=== PATIENT | male | born 1970 | race Caucasian/White ===

== ENCOUNTER → 2021-02-28 10:44 | Outpatient (BNVA) | payer OTHER, SELFPAY | PROVIDERS: Visit Provider Family Medicine | DX: Z76.89 Persons encountering health services in other specified circumstances (principal); D64.9 Anemia, unspecified; E03.9 Hypothyroidism, unspecified; E06.3 Autoimmune thyroiditis; R79.89 Other specified abnormal findings of blood chemistry | CPT/HCPCS: 80053; 80061; 84153; 84443; 85025 ==

== ENCOUNTER → 2021-03-20 08:32 | Outpatient (BNVA) | payer OTHER, SELFPAY | PROVIDERS: PCP Family Medicine; Visit Provider Family Medicine | DX: R53.83 Other fatigue (principal); R45.86 Emotional lability | CPT/HCPCS: 84402 ==

== ENCOUNTER 2021-05-30 08:23 | Outpatient (CLI) | payer OTHER, SELFPAY ==
--- NOTE | 2021-05-30 08:30 | CT_ITS ---
WS: [id number] CT CHEST TECHNIQUE: Contrast enhanced CT of the chest with coronal and sagittal reformatted images. CLINICAL INFORMATION: PULMONARY NODULES COMPARISON: None. DLP: 275.[address] scans at [facility] use at least one of these dose optimization techniques: automated e xposure control; mA and/or kV adjustment per patient size (includes targeted exams where dose is matc hed to clinical indication); or iterative reconstruction. FINDINGS: Moderate chronic emphysematous changes. No acute pulmonary infiltrates. No focal pneumonia or pleural fluid. Subpleural nodules in the right lower lobe largest measuring 8.3 mm. 2 small nodules or focal pleural thickening in the right horizontal fissure largest measuring 4 mm. Noncalcified nodule left upper lobe measuring 4 mm. Noncalcified nodule left lower lobe laterally measuring 6 mm. 3 mm subpleu ral nodule left lower lobe laterally. Hazy subpleural nodule right lower lobe laterally measuring 4 m m. Adrenal glands are normal. Normal spleen. Normal GE junction. Small calcified left thyroid nodule. No rmal caliber thoracic aorta. Proximal main pulmonary arteries are normal. No mediastinal or hilar lym phadenopathy. No axillary lymphadenopathy. CT/CT chest w con* [id number] IMPRESSION: 1. Several subcentimeter noncalcified pulmonary nodules largest in the right l ower lobe subpleural in location measuring 8 mm and left lower lobe laterally m easuring 6 mm. Recommend 6 month follow-up. 2. No mediastinal or hilar lymphadenopathy. 3. No acute pulmonary infiltrates.
[2021-05-30] MEDS: iohexol 300 mg/mL 100 mL Btl IV (10:34)
== END 2021-05-30 08:24 | disposition home or self-care (01) ==
LOC: RAD 08:28
PROVIDERS: PCP Family Medicine; Visit Provider Family Medicine
DX: R91.8 Other nonspecific abnormal finding of lung field (principal)
CPT/HCPCS: 71260

== ENCOUNTER → 2021-06-01 09:20 | Outpatient (BNVA) | payer OTHER, SELFPAY | PROVIDERS: PCP Family Medicine; Visit Provider Family Medicine | DX: K21.9 Gastro-esophageal reflux disease without esophagitis (principal); L30.1 Dyshidrosis [pompholyx]; R91.8 Other nonspecific abnormal finding of lung field | CPT/HCPCS: 85651; 86038; 86140; 86200; 86431 ==

== ENCOUNTER → 2021-06-12 11:50 | Outpatient (BNVA) | payer OTHER, SELFPAY | PROVIDERS: PCP Family Medicine; Visit Provider Surgery | DX: Z20.822 Contact with and (suspected) exposure to COVID-19 (principal) | CPT/HCPCS: 87635 ==

== ENCOUNTER 2021-07-04 11:09 | Outpatient (CLI) | payer OTHER, SELFPAY ==
--- NOTE | 2021-07-04 11:52 | XR_ITS ---
WS: [email or web address] Right hand, 2 views, 07/04/2021 Clinical Data: R21 - Rash and other nonspecific skin eruption Comparison: None. Findings: No fractures or dislocations are seen. The soft tissues are unremarkable. The joint space s are normal No periarticular demineralization or calcifications are seen. XR/XR hand RT 2V [id number] Impression: Negative right hand.
--- NOTE | 2021-07-04 11:52 | XR_ITS ---
WS: [id number] Sacroiliac joints, 3 views, 07/04/2021 Clinical Data: L40.9 - Psoriasis, unspecified Comparison: None. Findings: The SI joints are normal in width. No erosion, sclerosis or destruction is seen. There are no fractur es or dislocations. There are radiopaque clips from surgery overlying the subcutaneous tissue of the pelvis. The adjacent visualized pelvis and hips are unremarkable. XR/XR sacroiliac jts m 3V 46030 Impression: Negative SI joints.
--- NOTE | 2021-07-04 11:52 | XR_ITS ---
WS: [email or web address] Right foot, 2 views, 07/04/2021 Clinical Data: M25.50 - Pain in unspecified joint Comparison: None. Findings: No fractures or dislocations are seen. No bone destruction or erosion is noted. The joint spaces and soft tissues are normal. There is a plantar spur. XR/XR foot RT 2V [id number] Impression: Negative right foot.
--- NOTE | 2021-07-04 11:52 | XR_ITS ---
WS: [email or web address] Left hand, 2 views, 07/04/2021 Clinical Data: R21 - Rash and other nonspecific skin eruption Comparison: None. Findings: No fractures or dislocations are seen. The soft tissues are unremarkable. The joint spaces are normal No periarticular demineralization or calcifications are seen. XR/XR hand LT 2V [id number] Impression: Negative left hand.
--- NOTE | 2021-07-04 11:52 | XR_ITS ---
WS: [email or web address] Left foot, 2 views, 07/04/2021 Clinical Data: M25.50 - Pain in unspecified joint Comparison: None. Findings: No fractures or dislocations are seen. No bone destruction or erosion is noted. The joint spaces and soft tissues are normal. There is a plantar spur. No periarticular demineralization or calcifications are seen. XR/XR foot LT 2V [id number] Impression: Negative left foot.
--- NOTE | 2021-07-04 11:52 | XR_ITS ---
WS: [email or web address] Lateral views of cervical spine in the flexion, extension and neutral positions. 07/04/2021 Clinical Data: R21 - Rash and other nonspecific skin eruption Comparison: None. Findings: There is degenerative disc disease at C4-C5, C5-C6 and C6-C7 with accompanying osteophyte formation. No compression fractures are seen. The prevertebral tissues show no swelling. On flexion and extensio n there is no limitation of motion or subluxation. XR/XR cervical spine fl/ex [id number] Impression: 1. Degenerative disc narrowing at C4-C5, C5-C6 and C6-C7 with osteophytes. 2. Negative for subluxation or limitation of motion on flexion or extension.
[2021-07-04 12:46] LABS: Complement C3 102 mg/dL (90-180)
[2021-07-04 13:20] LABS: Vitamin B12 299 pg/mL (232-1245)
[2021-07-04 13:46] LABS: Hepatitis B Core AB, Total Non-Reactive (Nonreactive); Hepatitis B Surface Antigen Non-Reactive (Nonreactive); Hepatitis C Virus Antibody Non-Reactive (Nonreactive)
[2021-07-05 12:27] LABS: COMPLEMENT COMPONENT C3C 94 mg/dL (82-185); COMPLEMENT COMPONENT C4C 22 mg/dL (15-53)
[2021-07-05 14:22] LABS: Cyclic Citrullinated Peptide <16 UNITS
[2021-07-05 14:33] LABS: COMPLEMENT, TOTAL (CH50) >60 U/mL (31-60)
[2021-07-07 13:27] LABS: CENTROMERE B ANTIBODY <1.0 NEG AI (<1.0 NEG); JO-1 ANTIBODY <1.0 NEG AI (<1.0 NEG); RNP ANTIBODY <1.0 NEG AI (<1.0 NEG); SCL-70 ANTIBODY <1.0 NEG AI (<1.0 NEG); SJOGREN'S ANTIBODY (SS-A) <1.0 NEG AI (<1.0 NEG); SM ANTIBODY <1.0 NEG AI (<1.0 NEG); SS-B <1.0 NEG AI (<1.0 NEG)
[2021-07-07 16:08] LABS: THYROID PEROXIDASE ANTIBODIES 357 IU/mL (<9)
[2021-07-10 11:27] LABS: ANA SCREEN, IFA POSITIVE (NEGATIVE); ANA TITER 1:40 titer
[2021-07-11 11:12] LABS: DNA AB (DS) CRITHIDIA,IFA NEGATIVE (NEGATIVE)
== END 2021-07-04 11:10 | disposition home or self-care (01) ==
PROVIDERS: PCP Family Medicine; Visit Provider Internal Medicine
DX: M25.50 Pain in unspecified joint (principal); R21 Rash and other nonspecific skin eruption; R76.8 Other specified abnormal immunological findings in serum; R91.8 Other nonspecific abnormal finding of lung field; L40.9 Psoriasis, unspecified; M25.78 Osteophyte, vertebrae
CPT/HCPCS: 72040; 72202; 73120; 73620; 82607; 83516; 86160; 86162; 86200; 86235; 86255; 86376; 86431; 86704; 86803; 87340

== ENCOUNTER 2021-07-17 10:34 | Outpatient (CLI) | payer OTHER, SELFPAY ==
[2021-07-17 11:07] LABS: Basophils # 0.1 10^3/uL (0.0-0.1); Basophils % 0.7 %; Eosinophils # 0.2 10^3/uL (0.0-0.8); Eosinophils % 2.1 %; Hematocrit 48.6 % (42.0-52.0); Hemoglobin 16.1 g/dL (11.7-16.6); Lymphocytes # 1.6 10^3/uL (0.8-4.8); Lymphocytes % 16.5 %; Mean Corpuscular HGB Conc 33.1 g/dL (30.0-36.0); Mean Corpuscular Volume 90.5 fl (80-94); Mean Platelet Volume 10.2 fL (7.4-10.4); Monocytes # 0.8 10^3/uL (0.2-0.9); Monocytes % 8.4 %; Neutrophils # 7.08 10^3/uL (1.8-7.7); Nucleated Red Blood Cells % 0 %; Platelet Count 224 10^3/cmm (130-400); Red Blood Count 5.37 10^6/uL (4.1-5.3); Red Cell Distribution Width 12.4 % (12.1-15.1); White Blood Count 9.8 10^3/uL (4.0-10.0)
[2021-07-17 11:32] LABS: Alanine Aminotransferase 23 U/L (0-41); Albumin Level 4.5 g/dL (3.5-5.2); Alkaline Phosphatase 55 IU/L (40-130); Anion Gap 13.5 (5-19); Aspartate Amino Transferase 26 U/L (0-40); Blood Urea Nitrogen 12 mg/dL (6-20); Calcium 8.5 mg/dL (8.5-10.5); Carbon Dioxide 26 mmol/L (22-29); Chloride 106 mmol/L (98-107); Globulin 2.5 g/dL (1.3-4.6); Glucose 105 mg/dL (65-115); Osmolality Calculated 292 mOsm/kg (285-295); Potassium 4.5 mmol/L (3.5-5.1); Sodium 141 mmol/L (136-145); Total Bilirubin 0.2 mg/dL (0.15-1.2)
[2021-07-19 12:53] LABS: Quantiferon Mitogen >10.00 IU/mL; Quantiferon Nil 0.01 IU/mL; Quantiferon TB Gold NEGATIVE (NEGATIVE)
== END 2021-07-17 10:35 | disposition home or self-care (01) ==
PROVIDERS: PCP Family Medicine; Visit Provider Internal Medicine
DX: M25.50 Pain in unspecified joint (principal); R21 Rash and other nonspecific skin eruption; R76.8 Other specified abnormal immunological findings in serum
CPT/HCPCS: 80053; 85025; 86480

== ENCOUNTER 2023-12-11 16:17 | Observation (INO) | payer SELFPAY ==
[2023-12-11] VITALS (10 sets, daily range): BP systolic 104–145; BP diastolic 75–105; PULSE 66–86; RESP 16–22; TEMP 36.4; O2SAT 93–95
--- NOTE | 2023-12-11 16:31 | ECG_ITS ---
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 Measurements Intervals [place] Rate: 84 P: 74 FL: 181 QRS: 42 QRSD: 97 T: 45 QT: 366 QTc: 434 Interpretive Statements SINUS RHYTHM No previous ECG available for comparison Electronically Signed On 12-11-2023 17:54:15 CDT by Jorden Hall M.D. [id number]
--- NOTE | 2023-12-11 16:31 | CTR_ITS ---
PROCEDURE INFORMATION: Exam: CT Head Without Contrast Exam date and time: 12/11/2023 4:34 PM Age: 53 years old Clinical indication: Stroke-like symptoms; RT upper extremity weakness; Additional info: Symptoms of acute stroke TECHNIQUE: Imaging protocol: Computed tomography of the head without contrast. Radiation optimization: All CT scans at this facility use at least one of these dose optimization techniques: automated exposure control; mA and/or kV adjustment per patient size (includes targeted exams where dose is matched to clinical indication); or iterative reconstruction. Other technique: STROKE PROTOCOL was implemented. COMPARISON: CR XR cervical spine fl/ex [id number] 07/04/2021 12:18 PM RADIATION DOSE METRICS: Total DLP (mGy-cm): 1109 FINDINGS: Brain: Normal. No hemorrhage. Unremarkable white matter. No mass effect. Cerebral ventricles: No ventriculomegaly. Paranasal sinuses: Minimal ethmoidal air cell disease bilaterally. Mastoid air cells: Visualized mastoid air cells are well aerated. Bones: Unremarkable. No acute fracture. Soft tissues: Unremarkable. CT/CT head thrombolytic [id number] IMPRESSION: No acute intracranial abnormality. ASSESSMENT: ASPECTS ([place] Stroke Program Early CT Score) is 10.
--- NOTE | 2023-12-11 16:33 | XR_ITS ---
WS: [id number] XR chest 1V portable [id number] REASON FOR EXAM: syncope FINDINGS: Mild tortuosity and ectasia of the thoracic aorta. Normal heart size. Calcified granulomas disease in both hemithoraces. Small areas of linear atelectasis in the left lung base. Otherwise no evidence for acute or subacute pulmonary parenchymal or pleural disease. No significant abnormality of the bony thorax. XR/XR chest 1V portable [id number] IMPRESSION: No acute or subacute chest abnormality.
[2023-12-11 16:35] LABS: Glucose Point of Care 94 mg/dL (70-110)
--- NOTE | 2023-12-11 16:40 | ED_ITS ---
HPI - Dizziness 2 General: Chief Complaint: Dizziness Stated Complaint: stoke like symptoms Time Seen by Provider: 12/11/23 16:30 Source: patient Mode of arrival: ambulatory Limitations: no limitations History of Present Illness: HPI Narrative: 53-year-old male states he is down in hi s basement and turned left and then stated he got dizzy and fell he is in a pass out he states he had right sided weakness state he cannot really get his right arm related to working and had decreased vision out of his right eye as well. His states that he was slurring his words as well states this lasted few minutes and is since resolved. States he feels back at his baseline states he had another event similar on the way here but was not as bad as initial event. Denies any headaches denies any chest pain. Associated symptoms: Denies chest pain, chills, headache(s), nausea or vomiting Review of Systems 2 Const: Denies: fever(s), chills, body aches or change in appetite Eyes: Reports: blurry vision ENMT: Denies: throat pain or dental pain Card: Reports: pre-syncope; Denies: chest pain Resp: Denies: dyspnea GI: Denies: abdominal pain, nausea, vomiting or diarrhea Musc: Denies: neck pain or back pain Skin/Breast: Denies: rash Neuro: Reports: weakness in extremities, dizziness and Slurred speech present; Denies: headache(s) James/Lymph: Denies: easy bruising PFSH ED 2 PFSH: Medical History Psoriasis GERD without esophagitis Pulmonary nodules Acquired hypothyroidism Margaret's disease Surgical History History of appendectomy lap-1999 Hx of tonsillectomy No pertinent past surgical history Family History Unknown Lupus Other Cancer Heart attack Hypertension Rheumatoid arthritis Denies family history of Diabetes Hyperlipidemia Chronic kidney disease (CKD) Stroke Social History Smoking and tobacco/nicotine status: never used tobacco/nicotine Alcohol intake: current Alcohol intake frequency: holidays/special occasions only Substance/Drug Use: current Substance/Drug use frequency: daily Physical Exam 2 Const: COMMON NORMALS: patient oriented x3 HENMT: COMMON NORMALS: normocephalic and atraumatic HEAD & SCALP: n ormocephalic and atraumatic Eye: COMMON NORMALS: Equal, round and reactive pupils present and EOMs intact bilaterally PUPIL: Yes Equal, round and reactive pupils present Neck/C-Spine: COMMON NORMALS: full ROM and supple Chest: COMMONS NORMALS: normal inspection of the chest and normal palpation of entire chest wall Resp: COMMON NORMALS: normal respiratory effort, No retractions, No use of accessory muscles and clear to auscultation bilaterally AUSCULTATION: clear to auscultation bilaterally Cardio: COMMON NORMALS: regular rate, regular rhythm and No murmurs present (Cardio) RATE: regular rate RHYTHM: regular rhythm Extremity: COMMON NORMALS: normal to inspection and full ROM Neuro: COMMON NORMALS: patient oriented x3, moves all extremities and no focal motor deficits CRANIAL NERVES: Yes CN normal except as noted SPEECH: s peech normal GAIT: Yes Normal gait present MOTOR EXAM: 5/5 motor strength present throughout Psych: COMMON NORMALS: mental status grossly normal, Normal thought process present and cooperative THOUGHT PROCESS: Normal thought process present Skin: COMMON NORMALS: no rashes or lesions noted and no wounds GENERAL SKIN EXAM: no rashes or lesions noted Course 2 Vital Signs: Vital signs: Vital Signs Temperature 97.6 F 12/11/23 16:23 Pulse Rate 80 12/11/23 18:21 Respiratory Rate 16 12/11/23 17:50 Blood Pressure 128/79 12/11/23 18:21 Pulse Oximetry 94 12/11/23 18:21 Oxygen Delivery Me thod Room Air 12/11/23 16:53 MDM - Dizziness Medical Decision Making Patient presents here with a TIA symptoms of full resolved is not a lytic candidate due to the resolution of his symptoms patient been seen in the ER by neurology his imaging here is normal spoke to the hospitalist Angelique for observation Medical Records I reviewed the patient's medical records. Lab Data I reviewed the patient's lab results. 12/11/23 16:43 12/11/23 16:[address] 12/11/23 16:31 IMPRESSION: No acute intracranial abnormality. ASSESSMENT: ASPECTS ([place] Stroke Program Early CT Score) is 10. Chest X-Ray 12/11/23 16:33 IMPRESSION: No acute or subacute chest abnormality. Head/Neck CTA 12/11/23 17:32 IMPRESSION: No intracranial large vessel arterial stenosis or occlusion. IMPRESSION: No significant cervical arterial stenosis or occlusion. COMMENTS: Consistent with the [employer]'s Incidental Findings Committee white paper (J Am Kin Radiol 2015): In patients aged 35 years and older with an incidental thyroid nodule equal to or greater than 1.[address], MRI or extrathyroidal US, further evaluation with dedicated thyroid US is recommended for patients with normal life expectancy and without comorbidities. For smaller nodules without suspicious features, no further evaluation or follow up is recommended. REFERENCES: NASCET CRITERIA. The degree of stenosis in the cervical segment of the internal carotid artery is based on NASCET criteria. Normal is no stenosis. Mild is less than 50% stenosis. Moderate is 50-69% stenosis. Severe is 70% to 99% stenosis. Total occlusion is no detectable patent lumen. ADDENDUM: 12/11/23 2057 ADDENDUM: THIS REPORT CONTAINS FINDINGS THAT MAY BE CRITICAL TO PATIENT CARE. The findings were verbally communicated via telephone conference with GILMER BENNETT at 6:34 PM CDT on 12/11/2023. The findings were acknowledged and understood. Laboratory Results WBC 10.48 10^3/uL (3.29-11.43) 12/11/23 16:43 RBC 5.93 10^6/uL (3.85-5.65) H 12/11/23 16:43 Hgb 17.60 g/dL (11.27-16.99) H 12/11/23 16:43 Hct 53.8 % (37-53) H 12/11/23 16:43 MCV 90.7 fl (82-101) 12/11/23 16:43 MCH 29.7 pg (27-33) 12/11/23 16:43 MCHC 32.7 g/dL (30-55) 12/11/23 16:43 RDW 12.4 % (12.1-15.1) 12/11/23 16:43 Plt Count 244 10^3/cmm (157-399) 12/11/23 16:43 MPV 10.1 fL (7.4-10.4) 12/11/23 16:43 Neut % (Auto) 73.8 % 12/11/23 16:43 Lymph % (Auto) 15.0 % 12/11/23 16:43 [place] % (Auto) 9.0 % 12/11/23 16:43 Eos % (Auto) 1.0 % 12/11/23 16:43 Baso % (Auto) 0.9 % 12/11/23 16:43 Neut # (Auto) 7.74 10^3/uL (1.8-7.7) H 12/11/23 16:43 Lymph # (Auto) 1.6 10^3/uL (0.8-4.8) 12/11/23 16:43 [place] # (Auto) 0.9 10^3/uL (0.2-0.9) 12/11/23 16:43 Eos # (Auto) 0.1 10^3/uL (0.0-0.8) 12/11/23 16:43 Baso # (Auto) 0.1 10^3/uL (0.0-0.1) 12/11/23 16:43 Nucleated RBC % (auto) 0 % 12/11/23 16:43 Nucleated RBCs # 0.0 /100WBC 12/11/23 16:43 PT 12.80 SECONDS (12.1-14.9) 12/11/23 16:43 INR 0.94 (0.8-1.2) 12/11/23 16:43 APTT 26.0 SECONDS (23.9-36.7) 12/11/23 16:43 Sodium 143 mmol/L (136-145) 12/11/23 16:43 Potassium 4.5 mmol/L (3.5-5.1) 12/11/23 16:43 Chloride 103 mmol/L (98-107) 12/11/23 16:43 Carbon Dioxide 30 mmol/L (22-29) H 12/11/23 16:43 Anion Gap 14.5 (5-19) 12/11/23 16:43 BUN 10 mg/dL (6-20) 12/11/23 16:43 Creatinine 1.1 mg/dL (0.7-1.2) 12/11/23 16:43 GFR Calculation 69.8 mL/min (90-130) L 12/11/23 16:43 Glucose 101 mg/dL (65-115) 12/11/23 16:43 POC Glucose 94 mg/dL (70-110) 12/11/23 16:33 Calculated Osmolality 295 mOsm/kg (285-295) 12/11/23 16:43 Calcium 8.8 mg/dL (8.5-10.5) 12/11/23 16:43 Total Bilirubin 0.3 mg/dL (0.15-1.2) 12/11/23 16:43 AST 24 U/L (0-40) 12/11/23 16:43 ALT 29 U/L (0-41) 12/11/23 16:43 Alkaline Phosphatase 70 U/L (40-130) 12/11/23 16:43 Troponin T Baseline 9 ng/L (0-15) 12/11/23 16:43 Total Protein 7.5 g/dL (6.6-8.7) 12/11/23 16:43 Albumin 4.4 g/dL (3.5-5.2) 12/11/23 16:43 Globulin 3.1 g/dL (1.3-4.6) 12/11/23 16:43 Urine Color Yellow (Yellow) 12/11/23 17:45 Urine Appearance Clear (CLEAR) 12/11/23 17:45 Urine pH 6.5 (5-7) 12/11/23 17:45 Ur Specific [place] 1.022 (1.005-1.030) 12/11/23 17:45 Urine Protein Trace (Negative) A 12/11/23 17:45 Urine Glucose (UA) Negative (Normal) 12/11/23 17:45 Urine Ketones Negative (Negative) 12/11/23 17:45 Urine Blood Negative (Negative) 12/11/23 17:45 Urine Nitrate Negative (Negative) 12/11/23 17:45 Urine Bilirubin Negative (Negative) 12/11/23 17:45 Urine Urobilinogen 1.0 mg/dL (Negative) 12/11/23 17:45 Ur Leukocyte Esterase Negative (Negative) 12/11/23 17:45 Urine RBC 0-2 /hpf (0-2) 12/11/23 17:45 Urine WBC 0-5 /hpf (0-5) 12/11/23 17:45 Ur Squamous Epith Cells 0-5 /hpf (0-5) 12/11/23 17:45 Amorphous Sediment Not Reportable 12/11/23 17:45 Urine Bacteria None seen /hpf (NONE) 12/11/23 17:45 Hyaline Casts 0-4 /lpf H 12/11/23 17:45 Urine Opiates Screen Negative ng/mL (Negative) 12/11/23 17:45 Ur Barbiturates Screen Negative ng/mL (Negative) 12/11/23 17:45 Ur Phencyclidine Scrn Negative ng/mL (Negative) 12/11/23 17:45 Ur Amphetamines Screen Negative ng/mL (Negative) 12/11/23 17:45 U Benzodiazepines Scrn Negative ng/mL (Negative) 12/11/23 17:45 Urine Cocaine Screen Negative ng/mL (Negative) 12/11/23 17:45 U Marijuana (THC) Screen Positive ng/mL (Negative) H 12/11/23 17:45 All radiology interpretation(s) finalized by discharge EKG Data EKG 1: I personally reviewed and interpreted this EKG as follows: EKG interpretation date: 12/11/23 EKG interpretation time: 16:46 Interpretation: nsr hr [address] or t wave abnormalities qrs 97 qtc 407 Discharge Plan Discharge Patient Disposition: Placed in Observation Clinical Impression: Transient cerebral ischemia Condition: Stable Prescriptions: No Action cholecalciferol (vitamin D3) 10 mcg (400 unit) capsule 10 mcg PO DAILY tacrolimus 0.1 % ointment 1 applic topical BID Qty: 30 1RF pantoprazole 40 mg tablet,delayed release (DR/EC) 40 mg PO BID Qty: 60 2RF clobetasol 0.05 % ointment 1 applic topical BID 14 Days Qty: 45 2RF Rx Instructions: Apply to affected area no more than 2 weeks per month, alternating with Triamcinolone. triamcinolone acetonide 0.1 % ointment 1 applic topical BID Qty: 80 2RF Rx Instructions: Apply to affected area no more than 2 weeks per month, alternating with clobetasol. Not for face. Otezla 30 mg tablet 30 mg PO BID Qty: 60 3RF Otezla Starter 10 mg (4)-20 mg (4)-30 mg (47) tablets,dose pack See Rx Instructions PO PER PKG DIR Qty: 55 0RF Rx Instructions: PO PER PKG DIR thyroid (pork) [Decker Thyroid] 60 mg tablet 60 mg PO DAILY Qty: 90 1RF Referrals: Basil Hassan DO [Primary Care Provider] - Coding Level of Care Code ED Mixer Wet Pour for Chg Fwd NIH stroke score NIHSS Level Of Consciousness - 1a: 0 Level Of Consciousness Questions - 1b: Both Correct Level Of Consciousness Commands - 1c: Both Correct Best Gaze - 2: Normal Visual Gillespie - 3: No Visual Loss Facial Palsy - 4: Normal Motor Arm Right - 5: No Drift Motor Arm Left - 5: No Drift Motor Leg Right - 6: No Drift Motor Leg Left - 6: No Drift Limb Ataxia - 7: Absent Sensory - 8: Normal Best Language - 9: No Aphasia Dysarthia - 10: Normal Extinction And Inattention - 11: 0 Score Total Score: 0
[2023-12-11 17:00] LABS: Basophils # 0.1 10^3/uL (0.0-0.1); Basophils % 0.9 %; Eosinophils # 0.1 10^3/uL (0.0-0.8); Hematocrit 53.8 % (37-53); Lymphocytes # 1.6 10^3/uL (0.8-4.8); Mean Corpuscular HGB Conc 32.7 g/dL (30-55); Mean Corpuscular Hemoglobin 29.7 pg (27-33); Mean Corpuscular Volume 90.7 fl (82-101); Mean Platelet Volume 10.1 fL (7.4-10.4); Monocytes # 0.9 10^3/uL (0.2-0.9); Neutrophils # 7.74 10^3/uL (1.8-7.7); Neutrophils % 73.8 %; Nucleated Red Blood Cells % 0 %; Platelet Count 244 10^3/cmm (157-399); Red Blood Count 5.93 10^6/uL (3.85-5.65); Red Cell Distribution Width 12.4 % (12.1-15.1); White Blood Count 10.48 10^3/uL (3.29-11.43)
--- NOTE | 2023-12-11 17:09 | P.CONIM_ITS ---
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 The patient also reports a childhood history of obtaining serial EKGs every 6 months until his teens/early adulthood. Patient stated he is not sure why he was undergoing the repeat serial EKGs since he never obtained the information from his mother. On 12/11/2023 at 3:15 PM the patient stated that he was in his basement. He stated that he turned to look left and suddenly he had loss of vision in his right peripheral visual itjerina associated with right-sided weakness and a sensation that his chest was fluttering and he felt like he might pass out. The episode lasted for approximately 2 minutes followed by repeat episode that was less severe and of shorter duration followed by a third episode that was similar but even less severe and of shorter duration than the first or second TIA episode. The patient stated that he finally was able to leave the basement and go upstairs to inform his . According to the patient's the patient was having difficulty communicating and was slow to respond. Upon arrival to the emergency room the patient's symptoms had resolved. NIH score = 0. Glucose Accu-Chek 94. Blood pressure 138/94 with sinus rhythm 81 bpm. O2 saturation 94% on room air. Respirations 22 temperature 97.6 ?F. Upon neurological assessment patient was without complaints and stated that his symptoms had not returned. Noncontrast head CT reported to be negative for acute findings. Lab for CBC and comprehensive metabolic panel were obtained. CBC revealed elevated RBC of 5.93, elevated hemoglobin 17.6 and elevated hematocrit 53.8. Comprehensive metabolic panel was unrevealing. Troponin level pending at the time of this dictation. Drug allergies: None Current medications: Losartan 100 mg p.o. daily Sharon Thyroid 60 mg p.o. daily 30 mg p.o. twice daily Apremilast Vitamin D3 400 international units p.o. daily Clobetasol 0.05% topical ointment to be applied twice a day Protonix 40 mg p.o. twice daily Tacrolimus 0.1% topical ointment to be applied twice a day Triamcinolone 0.1% topical ointment to be applied twice a day Past medical history: Serial EKGs from until he was a teenager/young adult Margaret's thyroiditis Hypothyroidism Gastroesophageal reflux disease without esophagitis Hypertension Psoriasis Positive CHARLA (antinuclear antibody) Vitamin D deficiency Anemia Eczema Habits: The patient reports he smokes marijuana and drinks a sixpack of beer daily. The patient is aware of the potential health risks associated with smoking marijuana and alcohol consumption and voiced understanding. Family history: Remarkable for father who experienced a myocardial infarction and stroke Review of Systems 2 General: Reports: 10 or more systems reviewed and unremarkable except in HPI and below Medications/Allergies Home Medications Medication Instructions Recorded Confirmed Last Taken Type cholecalciferol (vitamin D3) 10 10 mcg PO DAILY 02/28/21 07/19/21 Unknown History mcg (400 unit) capsule tacrolimus 0.1 % topical ointment 1 applic topical BID #30 grams 03/16/21 07/19/21 Unknown Rx Sharon Thyroid 60 mg tablet 60 mg PO DAILY #90 tabs 05/02/21 07/19/21 Unknown Rx (thyroid (pork)) clobetasol 0.05 % topical ointment 1 applic topical BID 2 weeks #45 07/11/21 07/19/21 Unknown Rx grams triamcinolone acetonide 0.1 % 1 applic topical BID #80 grams 07/11/21 07/19/21 Unknown Rx topical ointment pantoprazole 40 mg tablet,delayed 40 mg PO BID #60 tabs 07/19/21 07/19/21 Unknown Rx release apremilast 10 mg (4)-20 mg (4)-30 See Rx Instructions PO PER PKG DIR 07/25/21 07/25/21 Unknown Rx mg (47) tablets in a dose pack #55 ea (Otezla Starter) apremilast 30 mg tablet (Otezla) 30 mg PO BID #60 tabs 07/25/21 07/25/21 Unknown Rx Allergies Allergy/AdvReac Type Severity Reaction Status Date / Time No Known Allergies Allergy Verified 12/11/23 16:28 PFSH Acute 2 PFSH: Medical History Psoriasis GERD without esophagitis Pulmonary nodules Acquired hypothyroidism Margaret's disease Surgical History History of appendectomy lap-1999 Hx of tonsillectomy No pertinent past surgical history Family History Unknown Lupus Other Cancer Heart attack Hypertension Rheumatoid arthritis Denies family history of Diabetes Hyperlipidemia Chronic kidney disease (CKD) Stroke Social History Smoking and tobacco/nicotine status: never used tobacco/nicotine Alcohol intake: current Alcohol intake frequency: holidays/special occasions only Substance/Drug Use: current Substance/Drug use frequency: daily Vitals/I&O/Wt Last Vital Signs Temp 97.6 F 12/11/23 16:23 Pulse 81 12/11/23 16:53 Resp 22 H 12/11/23 16:53 BP 138/92 12/11/23 16:23 Pulse Ox 94 12/11/23 16:53 O2 Del Method Room Air 12/11/23 16:53 Weight last 48 hrs Weight 278 lb Physical Exam 2 Narrative: Blood pressure 138/94 heart rate 81 respiration 22 temperature 97.6 ?F O2 saturation 94% on room air NIH score =0 Glucose Accu-Chek 94 The patient is alert and oriented x 3. Speech fluent. Head normocephalic. Neck supple. Cranial nerves II through XII intact. Pupils equal round and reactive light and accommodation. Extraocular movements intact. Motor testing 5/5 bilaterally. Deep tendon reflexes revealed plantar responses bilaterally. Sensory examination was intact to touch. Throat clear. Lungs clear. Heart regular rhythm and rate. Extremities were negative for cyanosis or edema. Data 12/11/23 16:43 12/11/23 16:43 A&P Assessment and plan (1) TIA (transient ischemic attack): Impression: 1. Transient ischemic attack manifested as sudden loss of vision in his right visual tijerina associated with right-sided weakness and a sensation that his chest was fluttering and a sensation that he might pass out. The episode lasted for approximately 2 minutes followed by a repeat episode that was less severe and of shorter duration followed by a third episode that was similar but even less severe and of shorter duration than the first or second TIA episode on 12/11/2023 at 3:15 PM. In the emergency room the patient's symptoms had resolved and his NIH score =0. Therefore the patient was not a candidate for intravenous thrombolytics and no intravenous thrombolytics were administered. 2. History of obtaining serial EKGs every 6 months from until his late teens/young adulthood etiology unclear 3. 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 Hypertension 5. Alcohol use (patient reports he drinks 6 beers a day) 6. Marijuana use Plan: 1. Recommend starting aspirin 325 mg p.o. every morning with food first dose now per NIH stroke protocol if no contraindications 2. Recommend starting a cholesterol-lowering agent per NIH stroke protocol if no contraindications 3. Recommend patient be admitted on cardiac event monitoring to assess for cardiac arrhythmias 4. Recommend cardiac evaluation to assess for cardiac arrhythmias since the patient reported palpitations and want to rule out embolic source for TIA episodes x 3 on 12/11/[address] angiogram of the head and neck to assess for carotid or vertebral artery stenosis 6. Patient aware of the potential health risks associated with alcohol and marijuana use 7. Recommend starting thiamine 100 mg p.o. daily since patient reports alcohol use 8. Vital signs and neurochecks per NIH stroke protocol 9. Fall precautions 10. Please provide patient or patient's with stroke manual/pamphlet 11. Recommend OT, PT and speech consults per NIH stroke protocol Consult Attestations 2 Medical Necessity Statement: The patient was evaluated by neurology for acute care/code stroke emergency department room #4 Coding Level of Care Code 21287 Diagnoses TIA (transient ischemic attack) G45.9
[2023-12-11 17:13] LABS: INR 0.94 (0.8-1.2)
[2023-12-11] MEDS: aspirin 81 mg Chew Tablet 324 MG PO (17:13)
[2023-12-11 17:18] LABS: Alanine Aminotransferase 29 U/L (0-41); Albumin Level 4.4 g/dL (3.5-5.2); Alkaline Phosphatase 70 U/L (40-130); Anion Gap 14.5 (5-19); Aspartate Amino Transferase 24 U/L (0-40); Blood Urea Nitrogen 10 mg/dL (6-20); Calcium 8.8 mg/dL (8.5-10.5); Carbon Dioxide 30 mmol/L (22-29); Chloride 103 mmol/L (98-107); Creatinine Clr Calc Pharmacy 108.3248; Globulin 3.1 g/dL (1.3-4.6); Glomerular Filtration Rate 69.8 mL/min (90-130); Glucose 101 mg/dL (65-115); Osmolality Calculated 295 mOsm/kg (285-295); Potassium 4.5 mmol/L (3.5-5.1); Sodium 143 mmol/L (136-145); Total Bilirubin 0.3 mg/dL (0.15-1.2); Total Protein 7.5 g/dL (6.6-8.7)
--- NOTE | 2023-12-11 17:32 | CTR_ITS ---
PROCEDURE INFORMATION: Exam: CTA Head With Contrast, Arteriography Exam date and time: 12/11/2023 5:36 PM Age: 53 years old Clinical indication: Stroke-like symptoms; RT upper extremity weakness; Additional info: CVA TECHNIQUE: Imaging protocol: Computed tomographic angiography of the head with contrast. Exam focused on the arteries. 3D rendering (Not supervised by radiologist): MIP and/or 3D reconstructed images were created by the technologist. Radiation optimization: All CT scans at this facility use at least one of these dose optimization techniques: automated exposure control; mA and/or kV adjustment per patient size (includes targeted exams where dose is matched to clinical indication); or iterative reconstruction. Contrast material: OMNI 350; Contrast volume: 100 ml; Contrast route: INTRAVENOUS (IV); COMPARISON: CT head thrombolytic [id number] 12/11/2023 4:34 PM RADIATION DOSE METRICS: Total DLP (mGy-cm): 632 FINDINGS: ANTERIOR CIRCULATION: Right internal carotid artery: Moderate calcified plaque. No significant stenosis or aneurysm is seen involving the petrous, cavernous, or supraclinoid right internal caroid artery. Right middle cerebral artery: No occlusion or significant stenosis. No aneurysm. Right anterior cerebral artery: No occlusion or significant stenosis. No aneurysm. Left internal carotid artery: Xpvv-rh-kuvlzaxd atherosclerotic plaque. No significant stenosis or aneurysm is seen involving the petrous, cavernous, or supraclinoid left internal caroid artery. Left middle cerebral artery: No occlusion or significant stenosis. No aneurysm. Left anterior cerebral artery: No occlusion or significant stenosis. No aneurysm. POSTERIOR CIRCULATION: Right vertebral artery: Intradural right vertebral artery demonstrates no occlusion or significant stenosis. No aneurysm. The proximal intradural vertebral artery appears to be fenestrated. Left vertebral artery: Intradural left vertebral artery demonstrates no occlusion or significant stenosis. No aneurysm. Basilar artery: No occlusion or significant stenosis. No aneurysm. Right posterior cerebral artery: No occlusion or significant stenosis. No aneurysm. Left posterior cerebral artery: No occlusion or significant stenosis. No aneurysm. Brain: No acute confluent lobar infarct, acute parenchymal hemorrhage or mass effect. Cerebral ventricles: No ventriculomegaly. Bones/joints: Unremarkable. No acute fracture. Soft tissues: Visualized soft tissues are unremarkable. PROCEDURE INFORMATION: Exam: CTA Neck With Contrast Exam date and time: 12/11/2023 5:36 PM Age: 53 years old Clinical indication: Stroke-like symptoms; RT upper extremity weakness; Additional info: CVA TECHNIQUE: Imaging protocol: Computed tomographic angiography of the neck with contrast. Exam focused on the cervical segments of the vasculature. 3D rendering (Not supervised by radiologist): MIP and/or 3D reconstructed images were created by the technologist. Radiation optimization: All CT scans at this facility use at least one of these dose optimization techniques: automated exposure control; mA and/or kV adjustment per patient size (includes targeted exams where dose is matched to clinical indication); or iterative reconstruction. Contrast material: OMNI 350; Contrast volume: 100 ml; Contrast route: INTRAVENOUS (IV); COMPARISON: CT head thrombolytic [id number] 12/11/2023 4:34 PM RADIATION DOSE METRICS: Total DLP (mGy-cm): 632 FINDINGS: Right common carotid artery: No stenosis. No dissection or occlusion. Right internal carotid artery: No significant stenosis seen by NASCET criteria. No dissection or occlusion. Right external carotid artery: No occlusion or stenosis of the origin. Left common carotid artery: No stenosis. No dissection or occlusion. Left internal carotid artery: Mild calcified and noncalcified plaque is seen involving the proximal left cervical internal carotid artery. No significant stenosis seen by NASCET criteria. No dissection or occlusion. Left external carotid artery: No occlusion or stenosis of the origin. Right vertebral artery: No cervical vertebral artery stenosis. No dissection or occlusion. Left vertebral artery: No cervical vertebral artery stenosis. No dissection or occlusion. Soft tissues: Calcified left thyroid nodule measuring up to 1.1 cm. Thyroid gland would be better assessed with thyroid ultrasound if clinically indicated. Bones/joints: Degenerative changes of the cervical spine. CT/CT angio headneck* [id number] IMPRESSION: No intracranial large vessel arterial stenosis or occlusion. IMPRESSION: No significant cervical arterial stenosis or occlusion. COMMENTS: Consistent with the [employer]'s Incidental Findings Committee white paper (J Am Kni Radiol 2015): In patients aged 35 years and older with an incidental thyroid nodule equal to or greater than 1.[address], MRI or extrathyroidal US, further evaluation with dedicated thyroid US is recommended for patients with normal life expectancy and without comorbidities. For smaller nodules without suspicious features, no further evaluation or follow up is recommended. REFERENCES: NASCET CRITERIA. The degree of stenosis in the cervical segment of the internal carotid artery is based on NASCET criteria. Normal is no stenosis. Mild is less than 50% stenosis. Moderate is 50-69% stenosis. Severe is 70% to 99% stenosis. Total occlusion is no detectable patent lumen.
[2023-12-11 17:33] LABS: Troponin(5th) Baseline 9 ng/L (0-15)
[2023-12-11] MEDS: iohexol 350 mg/mL 500 mL Btl (per mL) IV (17:39)
[2023-12-11 17:57] LABS: Charge for UA Resulting for Rev
[2023-12-11 18:03] LABS: Bilirubin Urine Negative (Negative); Blood Urine Negative (Negative); Glucose Urine UA Negative (Normal); Ketones Urine Negative (Negative); Leukocyte Esterase Urine Negative (Negative); Nitrate Urine Negative (Negative); Protein Urine Trace (Negative); Specific Gravity, Urine 1.022 (1.005-1.030); Urine Appearance Clear (CLEAR); Urine Color Yellow (Yellow); pH Urine 6.5 (5-7)
[2023-12-11 18:08] LABS: Bacteria Urine None Seen /hpf; Hyaline Casts Urine 0-4 /lpf; RBC Urine 0-2 /hpf (0-2); Squamous Epithelial Cell Urine 0-5 /hpf (0-5); WBC Urine 0-5 /hpf (0-5)
[2023-12-11 18:10] LABS: Amphetamines Screen Urine Negative (Negative); Barbiturates Screen Urine Negative (Negative); Benzodiazepines Screen Urine Negative (Negative); Cocaine Screen Urine Negative (Negative); Opiate Screen Urine Negative (Negative); PCP Screen Urine Negative (Negative); THC Screen Urine Positive (Negative)
[2023-12-11 18:58] LABS: Troponin 5 2HR 9.69 ng/L (0-15); Troponin 5 2HR Delta 0.69 ABS# (0-10)
--- NOTE | 2023-12-11 19:03 | USCV_ITS ---
Adams Davis Age: 53 Gender: M : 1970 Exam Date: 12/11/2023 19:11 Ordering Phys: Demian Condon MD Technologist: LAWSON [place] [facility] [place]: RIGHT hemiparesis, RIGHT A.fugax today, now resolved. BP: 145 / 105 HR: 67 Rhythm: Sinus Technical Quality: Adequate MEASUREMENTS (Male / Female) Normal Values 2D ECHO LV Diastolic Diameter PLAX 4.6 cm 4.2 - 5.9 / 3.9 - 5.3 cm IVS Diastolic Thickness 1.5 cm 0.6 - 1.0 / 0.6 - 0.9 cm IVS Systolic Thickness 1.9 cm LVPW Diastolic Thickness 1.5 cm 0.6 - 1.0 / 0.6 - 0.9 cm LVPW Systolic Thickness 2.2 cm LVOT Diameter 2.2 cm LV Ejection Fraction 2D Teich 58.3 % LV Ejection Fraction MOD 4C 50.7 % LV Ejection Fraction MOD 2C 62.6 % LV Ejection Fraction 2C AL 63.3 % LA Diameter 3.5 cm Aorta at Sinotubular Diameter 3.0 cm IVC Diameter 1.8 cm M-MODE LA Ao Ratio MM 1.2 AV Cusp Separation MM 1.9 cm DOPPLER AV Peak Velocity 120.0 cm/s LVOT Peak Velocity 97.0 cm/s AV Area Cont Eq vti 3.5 cm squared AV Area Cont Eq pk 3.0 cm squared MV Peak Velocity 86.0 cm/s MV Area PHT 4.7 cm squared Mitral E to A Ratio 1.4 PV Peak Velocity 89.0 cm/s FINDINGS Left Ventricle Left ventricle is normal size. LV systolic function is normal with EF of 50-55%. No regional wall motion abnormalities are seen. Right Ventricle Normal in size and function Right Atrium Normal in size Left Atrium Normal in size Mitral Valve Structurally normal valve. Trace mitral regurgitation. Aortic Valve Aortic valve is thickened and calcified. Cannot rule out bicuspid aortic valve. No significant stenosis or regurgitation seen. Tricuspid Valve Insufficient TR jet to evaluate RVSP Pulmonic Valve Not well visualized Pericardium Normal Aorta Normal in size IVC Appears to be normal CONCLUSIONS LV systolic function is normal with EF of 50-55% Trace mitral regurgitation. Aortic valve is thickened and calcified. Cannot rule out bicuspid aortic valve. No comparison studies are available. Jorden Hall MD (Electronically Signed) Final Date: 12 December 2023 09:06 S
--- NOTE | 2023-12-11 19:04 | ECG_ITS ---
[facility] Test Date: 2023-12-11 Pat Name: Adams Davis Department: Room: Gender: Male [employer] [facility] Consultant: : 1970 Requested By: Steffanie Calderon Order Number: [id number] [place] MD: Jorden Hall M.D. Measurements Intervals [place] Rate: 76 P: 76 MN: 179 QRS: 52 QRSD: 93 T: 43 QT: 376 QTc: 424 Interpretive Statements SINUS RHYTHM Compared to ECG 12/11/2023 16:46:56 No significant changes Electronically Signed On 12-12-2023 10:00:27 CDT by Jorden Hall M.D. [email or web address]
--- NOTE | 2023-12-11 19:04 | P.HP_ITS ---
Providers/Chief Complaint 2 Primary Care Provider: Basil Hassan DO Chief Complaint: stoke like symptoms History of Present Illness Adams Davis is a 53 year old male with past medical history of Margaret's thyroiditis, psoriasis, hypertension presents to the ER today with at least 3 episodes since early evening in which he has noticed loss of vision on the right side, weakness in the arms and the legs on the right side with episodes of syncope and presyncope. The first episode happened while he was working and standing in his basement. Episodes lasting for few seconds. He does give history of having episodes of passing out around 5 years ago for which she has never worked up. Today the episodes were associated with fluttering feeling in the chest not associated with nausea, vomiting or chest pain. No episodes of bowel or bladder incontinence. No seizure-like activity. Events were unwitnessed. Patient also gives history of daily alcohol use with at least 6 beers every night. Patient smokes marijuana. Denies any illicit drug use. In the ER he was seen by neurologist who recommended patient to have CTA head and neck and admission for further workup and monitoring. Review of Systems 2 General: Reports: 10 or more systems reviewed and unremarkable except in HPI and below Const: Denies: fever(s), chills, body aches, change in appetite, change in weight, malaise, night sweats, diaphoresis, change in sleep pattern, daytime sleepiness or snoring Eyes: Denies: change in vision, blurry vision, photophobia, eye discomfort or eye discharge ENMT: Denies: throat pain, enlarged tonsils, hoarseness, mouth pain, oral sores, dry mouth, tinnitus, nasal congestion or post nasal drip Card: Denies: chest pain, palpitations, irregular heart rhythm, edema, swelling of feet/ankles, lightheadedness, syncope, pre-syncope, dyspnea on exertion, orthopnea, leg pain with exertion or acrocyanosis Resp: Denies: dyspnea, productive cough, non-productive cough, wheezing, stridor, pain on inspiration, change in phlegm color, hemoptysis or chest congestion GI: Denies: abdominal pain, nausea, vomiting, hematemesis, coffee ground emesis, dysphagia, heartburn, diarrhea, constipation, bloating, GI cramping, change in bowel habits, pain on defecation, hematochezia or melena : Denies: flank pain, difficulty urinating, dysuria, urinary frequency, urinary urgency, urinary hesitancy, urinary dribbling, difficulty starting urination, change in urine stream, nocturia or hematuria Musc: Denies: neck pain, back pain, extremity pain, joint pain, joint swelling, joint redness, joint stiffness or limited range of motion Neuro: Denies: headache(s), numbness in extremities, weakness in extremities, sensory changes, lack of coordination, difficulty walking, frequent falls, dizziness, vertigo, confusion, Slurred speech present, difficulty communicating thoughts or seizure-like activity Psych: Denies: anxiety, depression, mood swings, panic attacks, hopelessness or irritability Endo: Denies: polyuria, polydipsia, tired all the time, cold intolerance, excessive sweating, flushing or heat intolerance James/Lymph: Denies: easy bruising or easy bleeding All/Imm: Denies: tongue swelling, facial swelling or acute wheezing Medications/Allergies Home Medications Medication Instructions Recorded Confirmed Last Taken Type cholecalciferol (vitamin D3) 10 10 mcg PO DAILY 02/28/21 07/19/21 Unknown History mcg (400 unit) capsule tacrolimus 0.1 % topical ointment 1 applic topical BID #30 grams 03/16/21 07/19/21 Unknown Rx [place] Thyroid 60 mg tablet 60 mg PO DAILY #90 tabs 05/02/21 07/19/21 Unknown Rx (thyroid (pork)) clobetasol 0.05 % topical ointment 1 applic topical BID 2 weeks #45 07/11/21 07/19/21 Unknown Rx grams triamcinolone acetonide 0.1 % 1 applic topical BID #80 grams 07/11/21 07/19/21 Unknown Rx topical ointment pantoprazole 40 mg tablet,delayed 40 mg PO BID #60 tabs 07/19/21 07/19/21 Unknown Rx release apremilast 10 mg (4)-20 mg (4)-30 See Rx Instructions PO PER PKG DIR 07/25/21 07/25/21 Unknown Rx mg (47) tablets in a dose pack #55 ea (Otezla Starter) apremilast 30 mg tablet (Otezla) 30 mg PO BID #60 tabs 07/25/21 07/25/21 Unknown Rx Allergies Allergy/AdvReac Type Severity Reaction Status Date / Time No Known Allergies Allergy Verified 12/11/23 16:28 PFSH Acute 2 PFSH: Medical History Psoriasis GERD without esophagitis Pulmonary nodules Acquired hypothyroidism Margaret's disease Surgical History History of appendectomy lap-1999 Hx of tonsillectomy No pertinent past surgical history Family History Unknown Lupus Other Cancer Heart attack Hypertension Rheumatoid arthritis Denies family history of Diabetes Hyperlipidemia Chronic kidney disease (CKD) Stroke Social History Smoking and tobacco/nicotine status: never used tobacco/nicotine Alcohol intake: current Alcohol intake frequency: holidays/special occasions only Substance/Drug Use: current Substance/Drug use frequency: daily Vitals/I&O/Wt Last Vital Signs Temp 97.6 F 12/11/23 16:23 Pulse 73 12/11/23 19:00 Resp 18 12/11/23 19:00 BP 145/105 12/11/23 19:00 Pulse Ox 95 12/11/23 19:00 O2 Del Method Room Air 12/11/23 19:00 Weight last 48 hrs Weight 126.099 kg Physical Exam 2 Narrative: General: No acute distress, AO x3, anxious, obese HEENT: PERRLA, pupils bilaterally equal and reactive Chest: Normal vesicular breath sounds, no added sounds, equal good air entry bilaterally CVS: S1-S2 regular, no murmurs, no tachycardia, no gallops, no rubs Abdomen: Soft, nontender, no organomegaly, bowel sounds present Neuro: No focal deficits, no facial deformity, AO x3, power 5/5 in all limbs Data 12/11/23 16:43 12/11/23 16:43 Other Labs: Radiology Impressions Head CT 12/11/23 16:31 IMPRESSION: No acute intracranial abnormality. ASSESSMENT: ASPECTS ([place] Stroke Program Early CT Score) is 10. Chest X-Ray 12/11/23 16:33 IMPRESSION: No acute or subacute chest abnormality. Head/Neck CTA 12/11/23 17:32 IMPRESSION: No intracranial large vessel arterial stenosis or occlusion. IMPRESSION: No significant cervical arterial stenosis or occlusion. COMMENTS: Consistent with the [employer]'s Incidental Findings Committee white paper (J Am Kin Radiol 2015): In patients aged 35 years and older with an incidental thyroid nodule equal to or greater than 1.[address], MRI or extrathyroidal US, further evaluation with dedicated thyroid US is recommended for patients with normal life expectancy and without comorbidities. For smaller nodules without suspicious features, no further evaluation or follow up is recommended. REFERENCES: NASCET CRITERIA. The degree of stenosis in the cervical segment of the internal carotid artery is based on NASCET criteria. Normal is no stenosis. Mild is less than 50% stenosis. Moderate is 50-69% stenosis. Severe is 70% to 99% stenosis. Total occlusion is no detectable patent lumen. ADDENDUM: 12/11/23 1415 ADDENDUM: THIS REPORT CONTAINS FINDINGS THAT MAY BE CRITICAL TO PATIENT CARE. The findings were verbally communicated via telephone conference with GILMER BENNETT at 6:34 PM CDT on 12/11/2023. The findings were acknowledged and understood. A&P Assessment and plan (1) Transient cerebral ischemia: Seen by neurologist in the ER. Concern for TIA. Appreciate CT and CTA head and neck. Check PT/OT. Check A1c, lipid panel. For now start on baby aspirin and atorvastatin 80 mg daily. Check echocardiogram. Patient does have history of positive CHARLA and Margaret's disease. Check ESR, CRP. Patient also has elevated hemoglobin up to 17.6. Platelet count within normal limit. For now we will start on gentle IV hydration with normal saline at 75 cc/h. Cannot rule out baseline obstructive sleep apnea given BMI of 35.7. Gives history of possible fluttering of the heart prior to admission. Telemetry monitoring. Depending on the monitoring can plan for possible event monitor on discharge. (2) Margaret's disease: Check TSH. Continue with home dose of thyroid replacement. (3) Positive CHARLA (antinuclear antibody): Plan History of hypertension: Patient is not on any antihypertensive. Goal blood pressure of less than 140/90 mmHg. Will start on antihypertensive if blood pressure elevated. Urine drug screen positive for marijuana. Does have history of alcohol use. Reports that he drinks up to 6 beer per day. Urine drug screen negative other than marijuana. For now we will place on CIWA protocol. Oral folic acid and thiamine accordingly. Check alcohol level. Full code Cardiac diet Continue with home dose of Protonix. Lovenox for DVT prophylaxis. Attestations 2 Medical Necessity Statement*: Admitted under observation for further evaluation and management of TIA in a patient with history of Margaret's disease, positive CHARLA Diagnoses Transient cerebral ischemia G45.9 Margaret's disease E06.3 Positive CHARLA (antinuclear antibody) R76.8
[2023-12-11 19:16] LABS: Erythrocyte Sedimentation Rate 1 mm/hr (0-10)
--- NOTE | 2023-12-11 19:26 | PC.NURSE ---
went to change pt into a hospital gown, no hospital gowns available at this time.
[2023-12-11 19:52] LABS: Iron 40 ug/dL (59-158); Percent Saturation 11.5 % (20-50); Thyroid Stimulating Hormone 1.62 uIU/mL (0.27-4.20); Total Iron Binding Capacity 345 mcg/dl; Unsaturated Iron Binding 305 ug/dL (112-347); Vitamin B12 258 pg/mL (232-1245)
[2023-12-11] MEDS: sodium chloride 0.9% 1,000 ML 75 ML IV (20:03)
[2023-12-11 20:23] LABS: Alcohol Level < 10 mg/dL (0-10)
--- NOTE | 2023-12-11 22:39 | PC.NURSE ---
report called to Gerri on med surg at 2240.
--- NOTE | 2023-12-11 23:04 | ECG_ITS ---
[facility] Test Date: 2023-12-12 Pat Name: Aadms Davis Department: Room: 275 Gender: Male Bottom Cager: : 1970 Requested By: Steffanie Calderon Order Number: [id number] [place] MD: Jorden Hall M.D. Measurements Intervals [place] Rate: 70 P: 85 MA: 193 QRS: 68 QRSD: 98 T: 42 QT: 388 QTc: 421 Interpretive Statements SINUS RHYTHM LOW QRS VOLTAGE IN PRECORDIAL LEADS [QRS DEFLECTION < 1.0 mV IN CHEST LEADS] POSSIBLE ANTERIOR MYOCARDIAL INFARCTION , PROBABLY OLD [30 ms Q WAVE IN V3/V4, OR R < 0.2 mV IN V4] Compared to ECG 12/11/2023 19:06:55 Low QRS voltage now present Myocardial infarct finding now present Electronically Signed On 12-12-2023 9:59:58 CDT by Jorden Hall M.D. [email or web address]
[2023-12-11 23:26] LABS: Troponin 5 6HR 9.79 ng/L (0-15); Troponin 5 6HR Delta 0.79 ng/L (0-12)
[2023-12-12] VITALS (8 sets, daily range): BP systolic 139–147; BP diastolic 88–96; PULSE 68–80; RESP 16–18; TEMP 36.4–36.6; O2SAT 93–97
[2023-12-12] MEDS: enoxaparin 40 mg/0.4 mL Syringe SUBCUT (01:05)
[2023-12-12] MEDS: atorvastatin 40 mg Tablet PO (01:05)
[2023-12-12 05:12] LABS: Basophils # 0.1 10^3/uL (0.0-0.1); Basophils % 0.7 %; Eosinophils # 0.3 10^3/uL (0.0-0.8); Eosinophils % 2.9 %; Hematocrit 51.4 % (37-53); Lymphocytes # 1.9 10^3/uL (0.8-4.8); Lymphocytes % 21.5 %; Mean Corpuscular HGB Conc 33.1 g/dL (30-55); Mean Corpuscular Hemoglobin 29.9 pg (27-33); Mean Corpuscular Volume 90.5 fl (82-101); Mean Platelet Volume 9.8 fL (7.4-10.4); Monocytes # 0.9 10^3/uL (0.2-0.9); Monocytes % 9.7 %; Neutrophils # 5.73 10^3/uL (1.8-7.7); Neutrophils % 64.7 %; Nucleated Red Blood Cells % 0 %; Platelet Count 210 10^3/cmm (157-399); Red Blood Count 5.68 10^6/uL (3.85-5.65); Red Cell Distribution Width 12.3 % (12.1-15.1); White Blood Count 8.85 10^3/uL (3.29-11.43)
[2023-12-12 05:23] LABS: Estmated Average Glucose 114; Hemoglobin A1C 5.6 % (4.0-6.0)
[2023-12-12 05:32] LABS: Alanine Aminotransferase 21 U/L (0-41); Albumin Level 3.8 g/dL (3.5-5.2); Alkaline Phosphatase 64 U/L (40-130); Anion Gap 12.6 (5-19); Aspartate Amino Transferase 19 U/L (0-40); Blood Urea Nitrogen 12 mg/dL (6-20); Calcium 7.9 mg/dL (8.5-10.5); Carbon Dioxide 24 mmol/L (22-29); Chloride 108 mmol/L (98-107); Creatinine Clr Calc Pharmacy 133.2395; Globulin 2.5 g/dL (1.3-4.6); Glomerular Filtration Rate 87.9 mL/min (90-130); Glucose 99 mg/dL (65-115); Magnesium 2.1 mg/dL (1.7-2.3); Osmolality Calculated 292 mOsm/kg (285-295); Phosphorus 2.8 mg/dL (2.5-4.5); Potassium 3.6 mmol/L (3.5-5.1); Sodium 141 mmol/L (136-145); Total Bilirubin 0.5 mg/dL (0.15-1.2); Total Protein 6.3 g/dL (6.6-8.7)
[2023-12-12 05:33] LABS: Chol HDL Ratio 5.04 mg/dL (1.0-5.00); Cholesterol 136 mg/dL (0-200); HDL Cholesterol 27 mg/dL (60-100); LDL Cholesterol Calculated 85 mg/dL (50-129); LDL HDL Ratio 3.15 RATIO (0.00-3.22); Triglycerides 120 mg/dL (0-150)
[2023-12-12 05:50] LABS: Folate Level 4.8 ng/mL (4.5-32.2)
[2023-12-12] MEDS: multivitamin therapeutic Tablet 1 TAB PO (08:57)
[2023-12-12] MEDS: pantoprazole DR 40 mg Tablet PO (08:57)
[2023-12-12] MEDS: aspirin 81 mg EC Tablet PO (08:57)
[2023-12-12] MEDS: thyroid 60 mg Tablet PO (08:57)
[2023-12-12] MEDS: sodium chloride 0.9% 1,000 ML 75 ML IV (08:58)
[2023-12-12] MEDS: thiamine 100 mg Tablet PO (08:58)
[2023-12-12] MEDS: folic acid 1 mg Tablet PO (08:58)
--- NOTE | 2023-12-12 09:44 | PC.CHAP ---
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 [] Patient/Family/Request visit [] Outpatient visit [] Follow-up visit [] Physician referral [] Code/Alert [x] Routine visit [] Staff referral [] Actively dying [] Patient sleeping [] Family support [] [] Out of room [] Palliative care [] [] Receiving care in room [] Pre-surgical visit [] Trauma [] Long length of stay [] ICU visit [] Other: Relational/Emotional Strength [x] Patient feels connected with others/family/visitors/staff [] Distress [] Loneliness/isolation [] Abandonment Spirituality of Patient [x] Person of Korin [] Attends Hindu of their Korin [x] Believes in Prayer [] Reads Bible or Methodist materials [] There are Spiritual issues to be addressed 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 Interventions [x] Prayer [x] Active listening [] Non-anxious presence [x] Spiritual/emotional support [] Crisis/trauma care [] Spiritual counseling [] Bereavement support [] Provided bereavement packet [] Provided Bible/devotional materials [] Provided toy/stuffed animal, coloring book to patient or family member [] Provided Communion [] Anointing/Anderson [] Salvation [x] Completed spiritual assessment [] Other: Impact on Illness or Injury [] Angry [] Fearful [] Anxious [] Often cries [] Exhaustion [] Unable to work [] Unable to attend christianity [] Unable to walk/stand [] Unable to read [] Unable to drive [] Unable to eat/drink [] Unable to sleep [] Unable to be with family [] Patient intubated [] Other: Summary Time spent with patient 5 min
[2023-12-12] MEDS: losartan 50 mg Tablet 100 MG PO (10:24)
--- NOTE | 2023-12-12 10:54 | P.DS_ITS ---
Discharge Providers Date of Admission: 12/11/23 19:53 Date of Discharge: December 12, 2023 Attending Provider at Admission: Demian Condon MD Attending Provider at Discharge: Demian Condon MD Consults: Neurology: Dr. Moore Primary Care Provider: Hai Pappas MD Diagnoses at Discharge Discharge Diagnosis (1) Transient cerebral ischemia: Status: Acute (2) Margaret's disease: Status: Acute (3) Positive CHARLA (antinuclear antibody): Status: Acute Reason for Visit Reason for Visit: stoke like symptoms Hospital Course Hospital Course Adams Davis is a 53 year old male with past medical history of Margaret's thyroiditis, psoriasis, hypertension presents to the ER today with at least 3 episodes since early evening in which he has noticed loss of vision on the right side, weakness in the arms and the legs on the right side with episodes of syncope and presyncope. The first episode happened while he was working and standing in his basement. Episodes lasting for few seconds. He does give history of having episodes of passing out around 5 years ago for which she has never worked up. Today the episodes were associated with fluttering feeling in the chest not associated with nausea, vomiting or chest pain. No episodes of bowel or bladder incontinence. No seizure-like activity. Events were unwitnessed. Patient also gives history of daily alcohol use with at least 6 beers every night. Patient smokes marijuana. Denies any illicit drug use. In the ER he was seen by neurologist who recommended patient to have CTA head and neck and admission for further workup and monitoring. During hospitalization patient did not have any further episodes of weakness. His blood pressures were found to be slightly elevated on his home dose of losartan. On review of his home blood pressure chart his blood pressures usually are over 1 50-1 55 systolics. Echocardiogram was done which showed normal EF with thickened and calcified aortic valve. He has been discharged in hemodynamically stable condition on oral amlodipine 10 mg oral daily along with home dose of losartan, continued home dose of levothyroxine along with baby aspirin and atorvastatin daily. He is to take thiamine oral daily. Patient was counseled in detail against using marijuana and alcohol. He is to follow-up with his primary care provider within next 1 week and with neurology within the next 2 weeks. Given his history of recurrent syncopal events event monitor has been ordered. Patient did not have any episode of arrhythmia during hospitalization. Physical Exam Narrative: General: No acute distress, AO x3, anxious, obese HEENT: PERRLA, pupils bilaterally equal and reactive Chest: Normal vesicular breath sounds, no added sounds, equal good air entry bilaterally CVS: S1-S2 regular, no murmurs, no tachycardia, no gallops, no rubs Abdomen: Soft, nontender, no organomegaly, bowel sounds present Neuro: No focal deficits, no facial deformity, AO x3, power 5/5 in all limbs Discharge Data Studies Completed and Pending Completed Studies During Hospitalization Category Date Time Status CT head thrombolytic 83486 Stat Cat Scan 12/11/23 16:31 Completed CTA head neck [CT angio headneck* [id number]] Stat Cat Scan 12/11/23 17:32 Completed CXRP [XR chest 1V portable [id number]] Stat Exams 12/11/23 16:33 Completed CV. echo complete* [id number] Routine Ultrasound 12/11/23 19:03 Completed Radiology Impressions Head CT 12/11/23 16:31 IMPRESSION: No acute intracranial abnormality. ASSESSMENT: ASPECTS ([place] Stroke Program Early CT Score) is 10. Chest X-Ray 12/11/23 16:33 IMPRESSION: No acute or subacute chest abnormality. Head/Neck CTA 12/11/23 17:32 IMPRESSION: No intracranial large vessel arterial stenosis or occlusion. IMPRESSION: No significant cervical arterial stenosis or occlusion. COMMENTS: Consistent with the [employer]'s Incidental Findings Committee white paper (J Am Kin Radiol 2015): In patients aged 35 years and older with an incidental thyroid nodule equal to or greater than 1.[address], MRI or extrathyroidal US, further evaluation with dedicated thyroid US is recommended for patients with normal life expectancy and without comorbidities. For smaller nodules without suspicious features, no further evaluation or follow up is recommended. REFERENCES: NASCET CRITERIA. The degree of stenosis in the cervical segment of the internal carotid artery is based on NASCET criteria. Normal is no stenosis. Mild is less than 50% stenosis. Moderate is 50-69% stenosis. Severe is 70% to 99% stenosis. Total occlusion is no detectable patent lumen. ADDENDUM: 12/11/23 1233 ADDENDUM: THIS REPORT CONTAINS FINDINGS THAT MAY BE CRITICAL TO PATIENT CARE. The findings were verbally communicated via telephone conference with GILMER BENNETT at 6:34 PM CDT on 12/11/2023. The findings were acknowledged and understood. Echocardiogram: CONCLUSIONS LV systolic function is normal with EF of 50-55% Trace mitral regurgitation. Aortic valve is thickened and calcified. Cannot rule out bicuspid aortic valve. No comparison studies are available. Jorden Hall MD (Electronically Signed) Final Date: 12 December 2023 09:06 Laboratory Results WBC 8.85 10^3/uL (3.29-11.43) 12/12/23 04:57 RBC 5.68 10^6/uL (3.85-5.65) H 12/12/23 04:57 Hgb 17.00 g/dL (11.27-16.99) H 12/12/23 04:57 Hct 51.4 % (37-53) 12/12/23 04:57 MCV 90.5 fl (82-101) 12/12/23 04:57 MCH 29.9 pg (27-33) 12/12/23 04:57 MCHC 33.1 g/dL (30-55) 12/12/23 04:57 RDW 12.3 % (12.1-15.1) 12/12/23 04:57 Plt Count 210 10^3/cmm (157-399) 12/12/23 04:57 MPV 9.8 fL (7.4-10.4) 12/12/23 04:57 Neut % (Auto) 64.7 % 12/12/23 04:57 Lymph % (Auto) 21.5 % 12/12/23 04:57 Pike % (Auto) 9.7 % 12/12/23 04:57 Eos % (Auto) 2.9 % 12/12/23 04:57 Baso % (Auto) 0.7 % 12/12/23 04:57 Neut # (Auto) 5.73 10^3/uL (1.8-7.7) 12/12/23 04:57 Lymph # (Auto) 1.9 10^3/uL (0.8-4.8) 12/12/23 04:57 Pike # (Auto) 0.9 10^3/uL (0.2-0.9) 12/12/23 04:57 Eos # (Auto) 0.3 10^3/uL (0.0-0.8) 12/12/23 04:57 Baso # (Auto) 0.1 10^3/uL (0.0-0.1) 12/12/23 04:57 Nucleated RBC % (auto) 0 % 12/12/23 04:57 Nucleated RBCs # 0.0 /100WBC 12/12/23 04:57 ESR 1 mm/hr (0-10) 12/11/23 16:43 PT 12.80 SECONDS (12.1-14.9) 12/11/23 16:43 INR 0.94 (0.8-1.2) 12/11/23 16:43 APTT 26.0 SECONDS (23.9-36.7) 12/11/23 16:43 Sodium 141 mmol/L (136-145) 12/12/23 04:57 Potassium 3.6 mmol/L (3.5-5.1) 12/12/23 04:57 Chloride 108 mmol/L (98-107) H 12/12/23 04:57 Carbon Dioxide 24 mmol/L (22-29) 12/12/23 04:57 Anion Gap 12.6 (5-19) 12/12/23 04:57 BUN 12 mg/dL (6-20) 12/12/23 04:57 Creatinine 0.9 mg/dL (0.7-1.2) 12/12/23 04:57 GFR Calculation 87.9 mL/min (90-130) L 12/12/23 04:57 Glucose 99 mg/dL (65-115) 12/12/23 04:57 POC Glucose 94 mg/dL (70-110) 12/11/23 16:33 Estimat Average Glucose 114 12/12/23 04:57 Hemoglobin A1c 5.6 % (4.0-6.0) 12/12/23 04:57 Calculated Osmolality 292 mOsm/kg (285-295) 12/12/23 04:57 Calcium 7.9 mg/dL (8.5-10.5) L 12/12/23 04:57 Phosphorus 2.8 mg/dL (2.5-4.5) 12/12/23 04:57 Magnesium 2.1 mg/dL (1.7-2.3) 12/12/23 04:57 Iron 40 ug/dL (59-158) L 12/11/23 18:36 TIBC 345 mcg/dl 12/11/23 18:36 % Saturation 11.5 % (20-50) L 12/11/23 18:36 Unsat Iron Binding 305 ug/dL (112-347) 12/11/23 18:36 Total Bilirubin 0.5 mg/dL (0.15-1.2) 12/12/23 04:57 AST 19 U/L (0-40) 12/12/23 04:57 ALT 21 U/L (0-41) 12/12/23 04:57 Alkaline Phosphatase 64 U/L (40-130) 12/12/23 04:57 Troponin T Baseline 9 ng/L (0-15) 12/11/23 16:43 Troponin T 120 Minute 9.69 ng/L (0-15) 12/11/23 18:36 Delta Troponin T 0.69 ABS# (0-10) 12/11/23 18:36 Troponin T Hi Sens 6Hr 9.79 ng/L (0-15) 12/11/23 22:53 Troponin T Hi Sens 6Hr Delta 0.79 ng/L (0-12) 12/11/23 22:53 C-Reactive Protein 5.0 mg/L (0.0-4.9) H 12/11/23 18:36 Total Protein 6.3 g/dL (6.6-8.7) L 12/12/23 04:57 Albumin 3.8 g/dL (3.5-5.2) 12/12/23 04:57 Globulin 2.5 g/dL (1.3-4.6) 12/12/23 04:57 Triglycerides 120 mg/dL (0-150) 12/12/23 04:57 Cholesterol 136 mg/dL (0-200) 12/12/23 04:57 LDL Cholesterol, Calc 85 mg/dL (50-129) 12/12/23 04:57 HDL Cholesterol 27 mg/dL (60-100) L 12/12/23 04:57 LDL/HDL Ratio 3.15 RATIO (0.00-3.22) 12/12/23 04:57 Cholesterol/HDL Ratio 5.04 mg/dL (1.0-5.00) H 12/12/23 04:57 Vitamin B12 258 pg/mL (232-1245) 12/11/23 18:36 Folate 4.8 ng/mL (4.5-32.2) 12/12/23 04:57 TSH 1.62 uIU/mL (0.27-4.20) 12/11/23 18:36 Urine Color Yellow (Yellow) 12/11/23 17:45 Urine Appearance Clear (CLEAR) 12/11/23 17:45 Urine pH 6.5 (5-7) 12/11/23 17:45 Ur Specific [place] 1.022 (1.005-1.030) 12/11/23 17:45 Urine Protein Trace (Negative) A 12/11/23 17:45 Urine Glucose (UA) Negative (Normal) 12/11/23 17:45 Urine Ketones Negative (Negative) 12/11/23 17:45 Urine Blood Negative (Negative) 12/11/23 17:45 Urine Nitrate Negative (Negative) 12/11/23 17:45 Urine Bilirubin Negative (Negative) 12/11/23 17:45 Urine Urobilinogen 1.0 mg/dL (Negative) 12/11/23 17:45 Ur Leukocyte Esterase Negative (Negative) 12/11/23 17:45 Urine RBC 0-2 /hpf (0-2) 12/11/23 17:45 Urine WBC 0-5 /hpf (0-5) 12/11/23 17:45 Ur Squamous Epith Cells 0-5 /hpf (0-5) 12/11/23 17:45 Amorphous Sediment Not Reportable 12/11/23 17:45 Urine Bacteria None seen /hpf (NONE) 12/11/23 17:45 Hyaline Casts 0-4 /lpf H 12/11/23 17:45 Urine Opiates Screen Negative ng/mL (Negative) 12/11/23 17:45 Ur Barbiturates Screen Negative ng/mL (Negative) 12/11/23 17:45 Ur Phencyclidine Scrn Negative ng/mL (Negative) 12/11/23 17:45 Ur Amphetamines Screen Negative ng/mL (Negative) 12/11/23 17:45 U Benzodiazepines Scrn Negative ng/mL (Negative) 12/11/23 17:45 Urine Cocaine Screen Negative ng/mL (Negative) 12/11/23 17:45 U Marijuana (THC) Screen Positive ng/mL (Negative) H 12/11/23 17:45 Ethyl Alcohol < 10 mg/dL (0-10) 12/11/23 18:36 Vitals Last Vital Signs Temp 97.8 F 12/12/23 07:38 Pulse 80 12/12/23 07:38 Resp 16 12/12/23 07:38 BP 145/96 12/12/23 10:24 Pulse Ox 96 12/12/23 07:38 O2 Del Method Room Air 12/12/23 07:38 Discharge Plan Discharge Patient Disposition: Home Condition: Stable Prescriptions: New atorvastatin 40 mg Tablet 40 mg PO BEDTIME Qty: 30 0RF aspirin 81 mg Tablet,Delayed Release (Dr/Ec) 81 mg PO DAILY Qty: 30 0RF Vitamin B-1 (mononitrate) 100 mg Tablet 100 mg PO DAILY Qty: 30 0RF amlodipine 10 mg tablet 10 mg PO DAILY Qty: 30 0RF Continued thyroid (pork) [[place]ving Thyroid] 60 mg tablet 60 mg PO DAILY Qty: 90 1RF losartan 100 mg Tablet 100 mg PO QAM Discharge Orders: Discharge Order (Routine); Ordered 12/12/23 Ordered By: Demian Condon Other Ambulatory Orders: MCT/Event Monitor 21 Days (Routine) Timeframe: 1 Week Facility: [facility] - Location: Radiology Ordered By: Demian oCndon Referrals: Dilan Moore MD [Physician] - 2 weeks (We have notified your physician's clinic of the need for a follow-up appointment to be scheduled. If you have not heard from them within the next 2 business days, please call them directly. ) Hai Pappas MD [Primary Care Provider] - 12/18/23 10:45 am Discharge Diet: Cardiac Discharge Activity: Resume usual activity and Increase activity as tolerated Patient Instructions: Aspirin (By mouth), Thiamine (By mouth), Amlodipine (By mouth), Atorvastatin (By mouth), Opioid Safety, Stroke Stoplight, TIA Activity Restrictions/Additional Instructions: Cardiac event Monitor scheduled for 12/16/2023 @ 3:00pm. Please arrive to [facility] 15 minutes before appointment to complete any paperwork that might be needed. Goal BP less than 140/90 mmhg Amlodipine has been added to the med list. Check your BP daily and maintain blood pressure diary. Follow-up with your primary care provider within the next 2 weeks for further adjustment of medications. Please take aspirin and atorvastatin daily. Please try to abstain from alcohol and marijuana use. Discharge Attestations Time Spent in Discharge Care*: greater than 30 min Specific Discharge Activities: educating patient, educating and/or supporting family/caregiver, discussing with pcp/other providers, discussing with family caseworker/social workers/dc planners, documenting/other paperwork and evaluating patient/reviewing data Status at Discharge: Cognitive status at discharge: cognitively intact , Behavioral status at discharge: cooperative , Functional status at discharge: independent ambulation , Overall status at discharge: patient is back to baseline Quality Metrics Clinical Quality Measures [ No reported AMI, CVA or VTE this stay] Coding Level of Care Code 88881 Total time (in minutes) for Discharge: 60 Diagnoses Transient cerebral ischemia G45.9 Margaret's disease E06.3 Positive CHARLA (antinuclear antibody) R76.8
== END 2023-12-12 14:45 | disposition home or self-care (01) ==
LOC: ER 18:43 → MEDSURG 19:53
PROVIDERS: Admitting Provider Student in an Organized Health Care Education/Training Program; Emergency Provider Emergency Medicine; PCP Family Medicine; Visit Provider Student in an Organized Health Care Education/Training Program
DX: G45.9 Transient cerebral ischemic attack, unspecified (principal); E06.3 Autoimmune thyroiditis; R76.8 Other specified abnormal immunological findings in serum; I10 Essential (primary) hypertension; L40.9 Psoriasis, unspecified; K21.9 Gastro-esophageal reflux disease without esophagitis
CPT/HCPCS: 36415; 36416; 70450; 70496; 70498; 71045; 80053; 80061; 80306; 80307; 81003; 81015; 82607; 82746; 82962; 83036; 83540; 83550; 83735; 84100; 84443; 84484; 85025; 85610; 85651; 85730; 86140; 93005; 93306; 94664; 96360; 96361; 96372; 97161; 99285; G0378; J1650; J3411; J7030; Q9967